=== PATIENT | female | born 1970 ===

== ENCOUNTER 2020-09-26 14:53 | Outpatient (CLI) | payer MEDICARE, MEDICAID | END 2020-09-26 14:54 | disposition home or self-care (01) | LOC: SCSMRI 14:53 | PROVIDERS: ATTEND Orthopaedic Surgery | DX: M75.102 Unspecified rotator cuff tear or rupture of left shoulder, not specified as traumatic (principal); M25.812 Other specified joint disorders, left shoulder; M19.012 Primary osteoarthritis, left shoulder ==

== ENCOUNTER → 2020-12-31 | Day surgery (SDC) | payer MEDICARE, MEDICAID ==
[~2020-12-31] MED LIST: Acetaminophen 500 MG TAB PO PRN; INFLIXIMAB IVPB SCH; SODIUM CHLORIDE 0.9% IVPB SCH; Sodium Chloride 0.9% 20 ML ONE; diphenhydrAMINE 25 MG CAP PO PRN
== END ==
LOC: ONC/OP 10:03
PROVIDERS: ATTEND Internal Medicine Gastroenterology
DX: K50.90 Crohn's disease, unspecified, without complications (principal); Z88.1 Allergy status to other antibiotic agents; Z88.2 Allergy status to sulfonamides; Z88.5 Allergy status to narcotic agent
CPT/HCPCS: 96413; 96415; J1745; J7050; Q0163

== ENCOUNTER 2021-02-25 09:42 | Day surgery (SDC) | payer MEDICARE, MEDICAID ==
[2021-02-25] MEDS ORDERED: diphenhydrAMINE 25 MG CAP PO PRN (09:46)
[2021-02-25] MEDS ORDERED: Acetaminophen 500 MG TAB PO PRN (09:46)
[2021-02-25] MEDS ORDERED: Sodium Chloride 0.9% 20 ML ONE (09:50)
[2021-02-25] MEDS ORDERED: SODIUM CHLORIDE 0.9% IVPB SCH (10:00)
[2021-02-25] MEDS ORDERED: INFLIXIMAB IVPB SCH (10:00)
[2021-02-25 10:29] VITALS: BP 128/56; TEMP 98.6
== END 2021-02-25 15:18 | disposition home or self-care (01) ==
LOC: ONC/OP 09:42
PROVIDERS: ATTEND Internal Medicine Gastroenterology
DX: K50.90 Crohn's disease, unspecified, without complications (principal); Z88.1 Allergy status to other antibiotic agents; Z88.2 Allergy status to sulfonamides; Z88.5 Allergy status to narcotic agent
CPT/HCPCS: 96413; 96415; J1745; J7050

== ENCOUNTER 2021-04-26 09:45 | Day surgery (SDC) | payer MEDICARE, MEDICAID ==
[~2021-04-26 09:45] MED LIST changes: +Acetaminophen 500 MG TAB PO SCH; +Sodium Chloride 0.9% 1,000 ML IV SCH; -Sodium Chloride 0.9% 20 ML ONE; -diphenhydrAMINE 25 MG CAP PO PRN; +diphenhydrAMINE 25 MG CAP PO SCH
[2021-04-26] MEDS ORDERED: Sodium Chloride 0.9% 10 ML ONE (09:54)
[2021-04-26 10:23] VITALS: BP 115/65
== END 2021-04-26 16:41 | disposition home or self-care (01) ==
LOC: ONC/OP 09:45
PROVIDERS: ATTEND Internal Medicine Gastroenterology
DX: K50.90 Crohn's disease, unspecified, without complications (principal); Z88.1 Allergy status to other antibiotic agents; Z88.2 Allergy status to sulfonamides; Z88.5 Allergy status to narcotic agent
CPT/HCPCS: 96413; 96415; J1745; J7030